=== PATIENT | male | born 1950 | race Caucasian/White ===

== ENCOUNTER → 2019-03-16 08:37 | Outpatient (CLI) | payer MEDICARE, BC, SELFPAY ==
--- NOTE | 2019-03-16 | DI.NM.S_ITS ---
PROCEDURE: NM BONE SCAN WHOLE BODY RADIOPHARMACEUTICAL: 21.2 mCi Tc-99m MDP IV. INDICATIONS: Personal history of malignant neoplasm of prostate TECHNIQUE: Delayed whole-body scintigrams were obtained approximately 3-4 hours after intravenous injection of radiotracer. Anterior and posterior views were acquired from vertex to feet. Additional left and right oblique views of the pelvis were obtained. COMPARISON: None. FINDINGS: There is increased uptake in the right proximal tibial and fibular shafts with deformity, consistent with old fractures. No lesions are identified in skull, sternum, clavicles, scapulae, ribs, bony pelvis, and visualized shafts of the long bones. There is low level increased uptake in cervical, thoracic and lumbar spine with distribution indistinguishable from degenerative disc and facet disease; early metastasis to spine could be obscured by degenerative changes. There are foci of increased periarticular activity involving wrists and hands bilaterally, compatible with degenerative/arthritic changes. There is normal soft tissue uptake. IMPRESSION: 1. No definitive scintigraphic findings to suggest osseous metastasis. 2. Suspect old fracture/deformity of the right tibial and fibular shafts. Dictated by: Noah Cadena M.D. on 03/16/2019 at 14:02 Approved by: Noah Cadena M.D. on 03/16/2019 at 17:24
== END ==
PROVIDERS: PCP Family Medicine; Visit Provider Family Medicine
DX: Z85.46 Personal history of malignant neoplasm of prostate (principal)
CPT/HCPCS: 78306; A9503

== ENCOUNTER 2019-07-26 09:23 | Day surgery (SDC) | payer MEDICARE, BC, SELFPAY ==
[2019-07-22 10:33] VITALS: BMI 30.3
[2019-07-26] VITALS (8 sets, daily range): BP systolic 139–170; BP diastolic 72–93; PULSE 50–61; RESP 10–60; TEMP 36.1–36.7; O2SAT 89–100; BMI 30.4
--- NOTE | 2019-07-26 | DI.RAD.S_ITS ---
PROCEDURE: XR CHEST 1V INDICATIONS: PORT A CATH PLACEMENT TECHNIQUE: One view of the chest was acquired. COMPARISON: None. FINDINGS: Surgical changes and devices: Left chest wall erasmo catheter is present. There is a loop within the left inferior neck which demonstrates a possible kink. Lungs and pleura: Lungs are clear. No pleural effusions or pneumothorax. Mediastinum: Mediastinal contours appear normal. Heart size is normal. Bones and chest wall: No suspicious bony lesions. Overlying soft tissues appear unremarkable. IMPRESSION: Possible kink within the left chest wall erasmo catheter. Oblique films could be performed for further assessment, if clinically indicated. Dictated by: Leeann Barber M.D. on 07/26/2019 at 13:52 Approved by: Leeann Barber M.D. on 07/26/2019 at 13:55
--- NOTE | 2019-07-26 10:40 | PM.HP.1 ---
History of Present Illness History of Present Illness Date Patient Seen: 07/26/19 Time Patient Seen: 10:47 Chief complaint: [id number] Narrative: 68-year-old male with metastatic prostate cancer presents for a Port-A-Cath placement. He has never had an indwelling central catheter. His medical history is significant for hypertension. No previous chest or vascular surgery. Today he is feeling well no pain fevers chills nausea vomiting. Patient History Medical History Arthritis (Acute) Enlarged prostate (Acute) HTN (hypertension) (Acute) Hypothyroidism (Acute) Leg fracture (Acute ~1971) Low back pain (Acute) Prostate cancer (Acute) Surgical History History of colonoscopy (Acute ~2013) Social History household members: spouse Smoking Status: Former smoker Family & Social History Social History: household members spouse Tobacco & Substance use: Tobacco type cigars,smokeless tobacco Smoking Status Former smoker Meds Home Medications and Allergies Home Medications Medication Instructions Recorded Confirmed Type albendazole [Albenza] 400 mg PO DAILY 07/22/19 07/22/19 History dipyridamole 25 mg PO DAILY 07/22/19 07/22/19 History hydrocodone-acetaminophen [[place]] 1 tab PO Q4-6H PRN 07/22/19 07/22/19 History mebendazole 100 mg PO BID 07/22/19 07/22/19 History propranolol 10 mg PO BID 07/22/19 History tamsulosin 0.4 mg PO DAILY 07/22/19 07/26/19 History thyroid (pork) [[place] Thyroid] 60 mg PO BID 07/26/19 07/26/19 History Allergies Allergy/AdvReac Type Severity Reaction Status Date / Time No Known Drug Allergies Allergy Verified 07/22/19 11:00 Review of Systems Review of Systems ROS Unobtainable: All systems reviewed & are unremarkable except as noted in HPI and below Exam Narrative Exam Narrative: General-adult male no acute distress, well nourished HEENT-moist mucous membranes, no scleral icterus Neck-supple with full range of motion, no lymphadenopathy Chest- no labored respirations, clear to auscultation bilaterally Cardiac-regular rate and rhythm Abdomen-soft, nontender, non distended Extremities-no edema, warm well perfused Neurological-alert and oriented x 3. No focal deficits Skin-normal temperature and turgor, no rashes or ulcers Assessment & Plan Assessment & Plan narrative: 68-year-old male with metastatic prostate cancer presents for Port-A-Cath placement. We discussed the risks of the operation including bleeding infection pneumothorax need for further procedure or operation. His questions have been answered and he is in agreement with the plan.
[2019-07-26] MEDS: LACTATED RINGERS 1,000 ML 42 ML IV (10:50)
--- NOTE | 2019-07-26 10:51 | SUR.PREOP ---
Pt. poor historian as far as medication goes..My takes care of all that. Dr. Corona made aware.
--- NOTE | 2019-07-26 11:31 | SUR.OPER ---
Supine on padded OR bed, head on pillow, arm padded and tucked at side, legs uncrossed, safety belt at thigh, tape over blanket over lower legs .
[2019-07-26] MEDS: CEFAZOLIN 2 GM/100 ML FROZ.PIGGY IV (12:15)
[2019-07-26] MEDS: BUPIVACAINE 0.25% (PF) VIAL 30 ML INJ (13:00)
[2019-07-26] MEDS: HEPARIN 5,000 UNIT, SODIUM CHLORIDE 0.9% 50 ML IV (13:01)
--- NOTE | 2019-07-26 13:36 | PM.OP.1 ---
Operative Date/Time/Diagnoses Date of procedure: 07/26/19 Time of procedure: 13:36 Pre-op diagnosis: metastatic prostate cancer Post-op diagnosis: same Procedure & Clinicians Procedure: Port a cath placement Same procedure as scheduled: Yes Indications: 68-year-old male with metastatic prostate cancer presents for Port-A-Cath placement. Surgeon: Marin Carmen Click Yes if Unassisted: Yes Anesthesia Type: General Operative Notes Findings: Tip of the catheter within the SVC Estimated Blood Loss (mL): 5 Blood products transfused: none Procedure in detail: Patient was brought to the operating room placed supine on table. Bilateral lower extremity compressive devices were applied. General anesthesia was induced and he was intubated with an LMA. He was then prepped and draped in usual sterile fashion. Time-out was performed ensure the correct patient procedure necessary equipment within the operating room. He received 2 g of Ancef prior to incision. A left subclavian vein access was attempted but the vessel could not be accessed. Under ultrasound guidance the left internal jugular vein was accessed under direct visualization. The guidewire was then threaded through the needle. Its placement was then confirmed using fluoroscopy. The dilator was then placed over the guidewire. The catheter was then inserted through the sheath. Placement was again confirmed with fluoroscopy. A subcutaneous pocket was made in the left chest wall. The tunneler device was used to move the catheter from the left neck to the left chest pocket. The port was attached after it was primed with heparined saline. The port was tested to ensure that it flushed easily and had good blood return. The port was then secured to the underlying fascia using interupted 0 Prolene suture. Hemostasis was achieved. The wound was irrigated with sterile saline. The subcutaneous tissues were reapproximated with the 3 0 Vicryl and then skin closed with 4-0 Monocryl. The skin was sealed with Dermabond. Patient tolerated procedure well. The sponge and instrument count at the end operation was correct. Patient emerged from general anesthesia was extubated and taken to the postoperative care unit in stable condition Complications: none Post-operative Condition: stable Disposition: same day surgery
== END 2019-07-26 14:37 | disposition home or self-care (01) ==
PROVIDERS: PCP Family Medicine; Visit Provider Surgery
PROC: (CPT 36561; principal; 2019-07-26 11:15)
DX: C61 Malignant neoplasm of prostate (principal); Z45.2 Encounter for adjustment and management of vascular access device
CPT/HCPCS: 36561; 71045; 76000; C1788; J0690; J1100; J1644; J2405; J2704; J3010

== ENCOUNTER → 2019-07-28 09:40 | Oncology outpatient (ONC) | payer MEDICARE, BC, SELFPAY ==
[2019-07-28 10:18] VITALS: BP 134/80; PULSE 61; RESP 18; TEMP 36.2; O2SAT 96
--- NOTE | 2019-07-28 10:27 | ONC.CONS ---
History of Present Illness - Data of Consult Patient: new to practice Consult date: 07/28/19 Requesting Physician: Jarred Sargent MD Primary Care Provider: Jarred Sargent MD - Consult Narrative Reason for consult: Prostate Cancer Narrative: Babatunde March is a 68 year old male. He presented with slow and weak urine stream with elevated serum PSA level as follows: 8.4 on 06/08/2013, 15.8 on 08/14/2014 and 26.4 on 02/02/2015. He underwent TRUS on 01/2015, and was diagnosed with prostate cancer by Kourtney Light MD as GS (5+4) with 8/12 cores involved. He was on testosterone cream at the time but discontinued. According to patient and patient's that he was deemed not a good candidate for surgical resection. Therefore radiation therapy with androgen deprivation therapy Lupron were recommended. Patient said that he walked away because the do not want to get radiation. They would like to pursue integrative alternative medical therapy. He went to [place] and received high dose iv vitamin C and a couple of oral nutritions. PSA went down. The PSA damon was 5 according to patient. In Aug 2016, he moved to [facility] in Aug 2016, and continued to do supplements. In Nov/2018, he noticed pressure in the abdomen with dizziness. He also developed left sided flank pain with fatigue. On 02/18/2019, PSA was 91.5. In Aug 2019, PSA was [address] Sargent's office. He again noticed a little bit slow urine stream. US on 02/23/2019 showed enlarged prostate, left-sided hydronephrosis and pelvic lymphadenopathy. On 03/01/2019, CT of the abdomen and pelvis showed a 1.2 cm necrotic appearing lymph node in the left internal iliac area and a bone scan was negative. On 03/02/2019, CT of the abdomen and pelvis without contrast showed a markedly enlarged prostate gland and bulky pelvic and iliac adenopathy with moderate left hydroureteranephrosis secondary to bulky left iliac adenopathy. A 1 cm hyperdense cortical lesion and the mid pole of the right kidney was also noted. A repeat bone scan on 03/16/2019 showed no evidence of metastasis. He went to [facility] and was seen by Dr. Merlin German. He was informed that he had a hormone naive metastatic prostate cancer. The patient received his first Lupron injection on 03/18/2019. After the injection, patient's symptoms have improved dramatically. Patient's abdominal flank pain also has improved. For the past 2 month, he reported no pain at all. On 05/10/2019, He saw Dr. Schwarz. Chemotherapy was discussed with patient. The patient then decided to seek second opinion and was seen by Dr. Nicholas Echeverria at [facility]. Recommendations include Lupron, Zytiga, or Xtandi or chemotherapy such as docetaxel, I toes antrum, Compazine Taxol, paclitaxel, carboplatin, leucovorin/5 FU,. Radiation therapy or surgery we also discussed with the patient. Immunotherapy with interferon and Leukine were discussed with the patient. CC: Prince Marcelo MD Home Medications and Allergies Home Medications Medication Instructions Recorded Confirmed Type hydrocodone-acetaminophen [[place]] 1 tab PO Q4-6H PRN 07/22/19 07/28/19 History tamsulosin 0.4 mg PO DAILY 07/22/19 07/28/19 History thyroid (pork) [[place] Thyroid] 60 mg PO BID 07/26/19 07/28/19 History Artmisiinin DAILY 07/28/19 History Berberine DAILY 07/28/19 History Cytoquel 07/28/19 History Homeopathic Prostate Drops 07/28/19 History Multi-Day Plus Minerals 1 tab DAILY 07/28/19 07/28/19 History Neprinol 07/28/19 History Quercitin DAILY 07/28/19 History Tm6 DAILY 07/28/19 History Vacustatin DAILY 07/28/19 History ascorbic acid (vitamin C) [Vitamin DAILY 07/28/19 History C] cholecalciferol (vitamin D3) 10,000 unit DAILY 07/28/19 07/28/19 History [Vitamin D3] magnesium 1 DAILY 07/28/19 History [id number]-ymcvjulhzvo cap PO DAILY 07/28/19 History vitamin B64-dsqlw acid tab PO DAILY 07/28/19 History Allergies Allergy/AdvReac Type Severity Reaction Status Date / Time No Known Drug Allergies Allergy Verified 07/22/19 11:00 Medical History - Medical, Surgical, Family History Medical History: Medical History (Last Reviewed 07/26/19 @ 10:48 by Marin Carmen MD) Arthritis Enlarged prostate HTN (hypertension) Hypothyroidism Leg fracture Onset Date: ~1971 Low back pain Prostate cancer Surgical History: Surgical History (Last Reviewed 07/26/19 @ 10:48 by Marin Carmen MD) History of colonoscopy Onset Date: ~2013 - Social History Smoking Status: Former smoker Review of Systems - Patient Self-Reported Symptoms SR Constitution: Weight loss/gain SR ears, nose, mouth, throat issues: Ears ringing SR Endocrine issues: Hot flashes All systems PM: reviewed and no additional remarkable complaints except as stated Exam Vital signs: Vital Signs Temp Pulse Resp BP Pulse Ox 07/28/19 10:18 97.2 F L 61 18 134/80 96 Intake and Output 07/27/19 07/28/19 07/28/19 23:59 07:59 15:59 Other: Weight 109.2 kg Patient Weight 07/28/19 23:59 Weight 109.2 kg Narrative: Gen: WDWN, NAD, pleasant and cooperative accompanied by her HEENT: NCAT, EOMI, PERRLA, anicteric sclera. Neck: Supple, No palpable thyromegaly or lymphadenopathy. Respiratory: CTAB, no wheezes audible. No JVD Cardiovascular: RRR, S1 and S2 normal, no M/G/R. Abdomen: Soft, NTND, BS normal, no palpable organomegaly Extremities: No LE pitting edema. Lymphatic: no palpable lymph nodes in the neck, axillae, or groins. Neurological: AOx3, CN II-XII grossly intact. No focal motor or sensory deficit. Psychiatric: Good judgment and insight; normal affect; normal thought process; cooperative, no depression, no anxiety. Results - Labs No labs for review today. Assessment and Plan (1) Prostate cancer Overview: Prostate Cancer, GS (5+4) diagnosed 01/2015. He refused recommendation of XRT/ADT and seek alternative treatment with high dose iv vitamin C and oral nutritions until early 2018 when he was found to have PSA of 91.5 and bulky pelvic and iliac adenopathy with moderate left hydroureteranephrosis secondary to bulky left iliac adenopathy in addition to enlarged prostate on CT scan. No bone metastasis on bone scan from 03/2019. He was seen by Dr. Merlin German at and was started on Lupron injection on 03/18/2019. Assessment: Patient clinically has had significant improvement after he was started on androgen deprivation therapy with Lupron. The left-sided flank pain has improved. I talked with the patient that his history indicated a hormone sensitive metastatic prostate cancer. I talked with him and his that the backbone of the treatment is androgen deprivation therapy. On top of that, we can add a variety of different options including abiraterone, or Xtandi, etc. In addition chemotherapy with docetaxel has also been proven to prolong patient's life. I recommended a repeat evaluation studies with scans including CT and bone scan. I tried to explain that the chemotherapy has proven to prolong life in patients with high-volume disease that is in patients with visceral metastasis or bone metastasis more than 4 locations. In low volume disease, the benefit has not been improven yet. Other therapies for example abiraterone and enzalutamide has been proven in this situation to be of value. Patient and patient's were not interested in further evaluation and did not agree with the standard of care as put forth in guidelines (NCCN and ASCO). They would like to pursue therapy according to their own thought. They said that the standard of care is biased by the big pharmaceutical companies that are not in the best of patient's interests. They are not interested in using abiraterone or Xtandi. They would like to use lower doses of docetaxel followed by low carboplatin. I explained to them that regimen has not been proven to help people with prostate cancer, and I do not think it is the correct thing to do. Patient agrees with continued androgen deprivation therapy. Plan: Patient and patient's will discuss further at home about what they are going to do next. I have tentatively scheduled follow-up appointment in about a month with me for further discussion.
--- NOTE | 2019-07-28 13:20 | ONC.MSW ---
Description: New Pt Intro Activity: Met with pt/ to introduce myself as the DEPORTATION OFFICER/KADY, offer services card, and establish initial rapport. 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 Pt was recently diagnosed with metastatic colon cancer, and is working with Dr. Echeverria through an integrative oncology clinic in [place]. Pt would like to have his chemo here locally, and for Dr. Marcelo to coordinate with his other providers. He's also had multiple treatments of vitamin C infusions over a five month course down in [place], after which his prostate cancer became metastatic. Discussed resources available such as lodging, taxi service from the [employer], and the availability of the [facility] Medical Relief Fund to assist with travel and out of pocket medical costs. Provided pt a medical priority boarding pass for 90-days, as he will soon begin active treatment. No further needs indicated at this time.
== END ==
LOC: ONC 09:41
PROVIDERS: PCP Family Medicine; Visit Provider Internal Medicine Hematology & Oncology
DX: C61 Malignant neoplasm of prostate (principal); I10 Essential (primary) hypertension; E03.9 Hypothyroidism, unspecified; Z87.891 Personal history of nicotine dependence
CPT/HCPCS: 99205; 99215

== ENCOUNTER 2019-08-23 12:53 | Day surgery (SDC) | payer MEDICARE, BC, SELFPAY ==
[2019-08-19 07:57] VITALS: BMI 30.3
[2019-08-23] VITALS (8 sets, daily range): BP systolic 128–161; BP diastolic 74–82; PULSE 51–60; RESP 9–16; TEMP 35.9–36.9; O2SAT 95–99; BMI 30.3
--- NOTE | 2019-08-23 | DI.RAD.S_ITS ---
PROCEDURE: XR CHEST 1V INDICATIONS: PORT A CATH PLACEMENT TECHNIQUE: One view of the chest was acquired. COMPARISON: [facility], CR, XR CHEST 1V, 07/26/2019, 13:37. FINDINGS: Surgical changes and devices: Right chest wall Port-A-Cath tip is in SVC. Lungs and pleura: Lungs are clear. No pleural effusions or pneumothorax. Mediastinum: Mediastinal contours appear normal. Heart size is enlarged. Bones and chest wall: No suspicious bony lesions. Overlying soft tissues appear unremarkable. IMPRESSION: Right chest wall Port-A-Cath tip is in SVC. No focal infiltrate or pneumothorax. Dictated by: Aren Wang M.D. on 08/23/2019 at 15:53 Approved by: Aren Wang M.D. on 08/23/2019 at 15:54
--- NOTE | 2019-08-23 13:15 | PM.PREOP ---
Pre-operative Note Interval Note History & Physical reviewed/Exam performed by Physician: Yes Changes to H&P: No
[2019-08-23] MEDS: LACTATED RINGERS 1,000 ML 100 ML IV (13:31)
[2019-08-23] MEDS: CEFAZOLIN 2 GM/100 ML FROZ.PIGGY IV (13:44)
--- NOTE | 2019-08-23 14:02 | SUR.OPER ---
Supine on padded OR bed, head on pillow, arm padded and tucked at side, legs uncrossed, safety belt at thigh, tape over blanket over lower legs .
[2019-08-23] MEDS: HEPARIN 5,000 UNIT, SODIUM CHLORIDE 0.9% 50 ML IV (14:21)
[2019-08-23] MEDS: BUPIVACAINE 0.25% (PF) VIAL 30 ML INJ (14:22)
[2019-08-23] MEDS: fentaNYL 100 MCG/2 ML INJ 50 MCG IV (15:02)
[2019-08-23] MEDS: OXYCODONE/ACETAMINOPHEN 5/325 TABLET 1 TAB PO (15:23)
--- NOTE | 2019-08-23 15:26 | SUR.PHASEI ---
Patient A/O. Christiana's x 4. Gave pain medication for c/o 03/25 pain. OK to transition to phase 11.
--- NOTE | 2019-08-23 15:58 | SUR.PHASEII ---
brought in. d/c instructions discussed, all voiced an understanding. awiting Dr. Nella ivan speak with them.
--- NOTE | 2019-08-23 16:52 | SUR.PHASEII ---
Late entry: Dr durham spoke with both pt and , pt then dressed with assist of , dressings remained c/d/i. pt left when ready and left in stable condition.
--- NOTE | 2019-08-23 18:25 | PM.OP.1 ---
Operative Date/Time/Diagnoses Date of procedure: 08/23/19 Time of procedure: 18:25 Pre-op diagnosis: Prostate cancer Post-op diagnosis: same Procedure & Clinicians Procedure: Removal of nonfunctioning left Port-A-Cath Insertion right internal jugular Port-A-Cath Same procedure as scheduled: Yes Indications: 68-year-old male with metastatic prostate cancer with planned undergo chemotherapy. He had a port placement approximately a month ago that was initially working but then became dysfunctional secondary due to a kinking of the catheter. He presents today for removal of the dysfunctional catheter and a new right-sided Port-A-Cath. Surgeon: Marin Carmen Click Yes if Unassisted: Yes Anesthesia Type: General Operative Notes Findings: The tip of the Port-A-Cath is in the SVC. No pneumothorax Specimen(s): other Prosthetic devices, grafts, tissues, transplants, or devices: Port-A-Cath Estimated Blood Loss (mL): 5 Procedure in detail: Patient was brought to the operating room placed supine on table. Bilateral lower extremity compressive devices were applied. General anesthesia was induced and he was intubated with an LMA. He was then prepped and draped in usual sterile fashion. Time-out was performed ensure the correct patient procedure necessary equipment within the operating room. He received 2 g of Ancef prior to incision. The left port a cath was removed by incision through the previous incision. A figure of 8 vicryl suture was placed around the entry site of the catheter and closed as it was removed. The pocket was irrigated and hemostasis acheived. The pocket was closed with Nylon interupted sutures. Under ultrasound guidance the right internal jugular vein was accessed under direct visualization. The guidewire was then threaded through the needle. Its placement was then confirmed using fluoroscopy. The dilator was then placed over the guidewire. The catheter was then inserted through the sheath. Placement was again confirmed with fluoroscopy. A subcutaneous pocket was made in the left chest wall. The tunneler device was used to move the catheter from the left neck to the left chest pocket. The port was attached after it was primed with heparined saline. The port was tested to ensure that it flushed easily and had good blood return. The port was then secured to the underlying fascia using interupted 0 Prolene suture. Hemostasis was achieved. The wound was irrigated with sterile saline. The subcutaneous tissues were reapproximated with the 3 0 Vicryl and then skin closed with 4-0 Monocryl. The skin was sealed with Dermabond. Patient tolerated procedure well. The sponge and instrument count at the end operation was correct. Patient emerged from general anesthesia was extubated and taken to the postoperative care unit in stable condition Complications: none Post-operative Condition: stable Disposition: PACU
== END 2019-08-23 16:20 | disposition home or self-care (01) ==
PROVIDERS: PCP Family Medicine; Visit Provider Surgery
PROC: (CPT 36561; principal; 2019-08-23 13:45)
DX: C61 Malignant neoplasm of prostate (principal); Z45.2 Encounter for adjustment and management of vascular access device
CPT/HCPCS: 36561; 36590; 71045; C1788; J0690; J1100; J1644; J2250; J2405; J2704; J3010

== ENCOUNTER → 2020-04-12 14:08 | Outpatient (CLI) | payer MEDICARE, BC, SELFPAY ==
--- NOTE | 2020-04-12 | DI.CT.S_ITS ---
PROCEDURE: CT CHEST ABD PEL WO CON INDICATIONS: Malignant neoplasm of prostate TECHNIQUE: After the administration of oral contrast, 5 mm thick sections acquired from the lung apices to the symphysis pubis. 5 mm thick coronal and sagittal reformats acquired, with additional 7 mm coronal MIP reformats through the lungs. For radiation dose reduction, the following was used: automated exposure control, adjustment of mA and/or kV according to patient size. COMPARISON: [place], [place], ID BONE SCAN WHOLE BODY, 03/16/2019, 13:07. FINDINGS: Image quality: Somewhat limited by the absence of both oral and intravenous contrast. CHEST: Lungs and pleura: No acute pulmonary opacities. No pleural effusions or pneumothorax. Central and peripheral airways are patent are normal in caliber. Mediastinum: Heart size is normal. No pericardial effusion. No mediastinal adenopathy by CT size criteria. Thoracic aorta and central pulmonary arteries are normal in size. Esophagus is normal in caliber. No hiatal hernia. Chest wall: No axillary or supraclavicular adenopathy by size criteria. Thyroid gland appears normal where well seen. A Port-A-Cath extends from right sided approach into the distal SVC. ABDOMEN: Solid organs: Liver is normal in size. Gallbladder is partially contracted. Pancreas is normal in contours. Spleen is normal in size. No adrenal nodules. Both kidneys are normal in size, without nephrolithiasis, but there is moderate hydronephrosis bilaterally extending symmetrically inferiorly towards the bladder within the retroperitoneum. The ureters are dilated and a specific site of ureteral calculus is not seen. Rather, the dilated ureters extend to an area of confluence of the seminal vesicles, prostate, and colonic structures which are difficult to separate morphologically due to absence of both oral and intravenous contrast and apposition of the soft tissues in this area. It is possible that there is an invasive mass extending cephalad with lobulated impingement on the distal ureters bilaterally.. Peritoneum and bowel: Small and large bowel loops are normal in caliber and wall thickness. No free fluid or air. Nodes and vessels: No retroperitoneal or mesenteric adenopathy by size criteria. Aorta and inferior vena cava are normal in size. Miscellaneous: No ventral hernias. PELVIS: Genitourinary: Bladder wall thickness is normal. Miscellaneous: No inguinal hernias or adenopathy. Lobulated soft tissue prominence noted contiguous with the end above the area of the seminal vesicles and posterior wall of the bladder. Distal ureters are dilated but then become confluent with the soft tissue prominence at the midline of the low pelvis. Bones: No suspicious bony lesions. No vertebral body compression fractures. IMPRESSION: No pulmonary metastatic disease is seen. No osseous metastatic disease is found. Lobulated soft tissue prominence is noted at the posterior superior bladder margin in the expected area of the seminal vesicles, where hydronephrosis and hydroureter terminates without identifiable ureteral stones. Tumor infiltration into this area is suspected but the absence of both oral and intravenous contrast reduces quality of visualization to the degree that the exact etiology for these findings is not established. Contrast enhanced MR scanning appears warranted. Given the current findings of bilateral hydronephrosis and hydroureter without nephrolithiasis and suspicion for tumor impingement on the distal urinary tract outflow urology consultation appears warranted at this time or in the near term. Dictated by: Vitaliy Ponce M.D. on 04/12/2020 at 15:59 Approved by: Vitaliy Ponce M.D. on 04/12/2020 at 16:07
== END ==
PROVIDERS: PCP Family Medicine; Referring Provider Family Medicine; Visit Provider Internal Medicine Hematology & Oncology
DX: C61 Malignant neoplasm of prostate (principal); N13.30 Unspecified hydronephrosis
CPT/HCPCS: 71250; 74176

== ENCOUNTER 2020-04-13 18:03 | Emergency (ER) | payer MEDICARE, BC, SELFPAY ==
[2020-04-13] VITALS (8 sets, daily range): BP systolic 171–202; BP diastolic 86–97; PULSE 51–64; RESP 12–22; TEMP 36.2–36.8; O2SAT 98–100; BMI 29.7
--- NOTE | 2020-04-13 18:30 | ED_ITS ---
HPI - Abdominal Pain General Chief Complaint: Abdominal Pain Stated Complaint: PAIN LEFT LOWER SIDE PAIN Time Seen by Provider: 04/13/20 18:30 Source: patient Mode of arrival: Ambulatory Limitations: no limitations History of Present Illness HPI narrative: The patient was initially diagnosed with prostate cancer when living in [place] several years ago. He moved to this area approximately 4 years ago. Initially the cancer was under good control, but his describes the cancer is returning with a vengeance 1+ years ago. He is under oncology care, receiving chemotherapy. Although he has been is area for 4 years, he does not have a urologist. He was post have a take an appointment in about 1 week. He also has hypertension, his blood pressure has been under control over the last several years, until recently. He presents now with headache, no associated chest pain or dyspnea. Has no confusion or visual changes. He has lower abdominal pain he has no associated nausea vomiting. He has no pain to the scrotum. He denies dysuria hematuria. He says his urine output has decreased. He is having regular urine output, but at a much slower rate and LEs less or mouth. Labs are drawn 3 days ago, I do not his baseline, but he reports his creatinine has increased to 2.75. Those labs are available. He also had a noncontrast CT at this hospital yesterday. There is a mass associated with the bladder appeared to cause obstruction of both ureters. He has hydronephrosis, down to the level of bladder and the cine of the mass. A postvoid residual was done, he had no difficulty urinating and had only 75 mL of urine in the bladder after urinating. He has no URI symptoms, no sore throat, no cough or dyspnea. He is having no fever or chills. He has been compliant with blood pressure medications, he has no cardiovascular disease. Related Data Home Medications Medication Instructions Recorded Confirmed hydrocodone-acetaminophen [[place]] 1 tab PO Q4-6H PRN 07/22/19 08/19/19 tamsulosin 0.4 mg PO DAILY 07/22/19 08/19/19 thyroid (pork) [Howe Thyroid] 60 mg PO BID 07/26/19 08/19/19 Artmisiinin DAILY 07/28/19 08/01/19 Berberine DAILY 07/28/19 08/01/19 Cytoquel 07/28/19 08/01/19 Homeopathic Prostate Drops 07/28/19 08/01/19 Multi-Day Plus Minerals 1 tab PO DAILY 07/28/19 08/19/19 Neprinol 07/28/19 08/01/19 Quercitin DAILY 07/28/19 08/01/19 Tm6 DAILY 07/28/19 08/01/19 Vacustatin DAILY 07/28/19 08/01/19 ascorbic acid (vitamin C) [Vitamin DAILY 07/28/19 08/01/19 C] cholecalciferol (vitamin D3) 10,000 unit DAILY 07/28/19 08/19/19 [Vitamin D3] magnesium 250 mg PO DAILY 07/28/19 08/19/19 [id number] 1 cap PO DAILY 07/28/19 08/19/19 vitamin [id number] acid tab PO DAILY 07/28/19 08/01/19 Previous Rx's Medication Instructions Recorded acetaminophen [Tylenol] 650 mg PO QID PRN #60 cap 08/23/19 Allergies Allergy/AdvReac Type Severity Reaction Status Date / Time No Known Drug Allergies Allergy Verified 08/23/19 13:35 Review of Systems Review of Systems ROS Unobtainable: All systems reviewed & are unremarkable except as noted in HPI and below Constitutional Constitutional: Denies anorexia, Denies body ache(s), Denies chills, Denies fever(s), Reports headache(s), Denies lethargy and Denies weakness Eyes Eyes: Denies change in vision ENT Ears, Nose, Mouth, and Throat: Denies dizziness, Reports headache(s), Denies nasal congestion, Denies nasal discharge and Denies neck pain Cardiovascular Cardiovascular: Denies chest pain, Denies lightheadedness, Denies palpitations, Denies dyspnea and Denies orthopnea Respiratory Respiratory: Denies cough, Denies dyspnea and Denies wheezing Gastrointestinal Gastrointestinal: Denies abdominal pain, Denies change in bowel habits, Denies nausea and Denies vomiting Musculoskeletal Musculoskeletal: Denies back pain and Denies neck pain Integumentary/Breasts Skin/Breast: Denies pruritus, Denies erythema, Denies rash and Denies wounds Neurologic Neurologic: Denies dizziness, Reports headache(s) and Denies weakness Endocrine Endocrine: Denies palpitations Allergic/Immunologic Allergic/Immunologic: Denies wheezing Patient History Medical History Arthritis (Acute) Enlarged prostate (Acute) HTN (hypertension) (Acute) Hypothyroidism (Acute) Leg fracture (Acute ~1971) Low back pain (Acute) Prostate cancer (Acute) Surgical History History of colonoscopy (Acute ~2013) Social History household members: spouse Smoking Status: Former smoker Smoking Status: Former smoker Substance Use Type: does not use Exam Initial Vital Signs Initial Vital Signs: Vital Signs Temperature 97.2 F L 04/13/20 18:08 Pulse Rate 56 L 04/13/20 18:08 Respiratory Rate 18 04/13/20 18:08 Blood Pressure 200/86 H 04/13/20 18:08 Pulse Oximetry 100 04/13/20 18:08 Const General: cooperative and well developed Nutritional Appearance: well nourished HENMT Mouth: oral mucosae normal Throat: posterior oropharynx normal Eyes Conjunctivae: conjunctivae normal Sclera: sclerae normal Neck Neck: No JVD Resp Effort & Inspection: normal respiratory effort and able to speak in complete sentences Auscultation: clear to auscultation bilaterally, no rales, no rhonchi and no wheezes Cardio Rate: regular rate Rhythm: regular rhythm Heart Sounds: no click, no gallops, no murmurs and no rubs Pulses: normal peripheral pulses GI Inspection: non-distended Palpation: soft, no hepatosplenomegaly, No guarding, No pulsatile mass and No tender Auscultation: normal bowel sounds Back/Spine/Pelvis Back: No CVA tenderness Skin General: no rashes or lesions noted, No jaundice and No petechiae Neuro General: alert, oriented x3, gait normal and no focal motor deficits Speech: speech normal Extrem General: full ROM, no clubbing, cyanosis or edema, no pedal edema and no calf tenderness Psych Appearance: well kempt Mental Status: mental status grossly normal Attitude: cooperative Thought Content: normal and suicidality Judgment: judgment good Course Course Course Narrative: The patient's lab work was repeated. His creatinine has increased to 3.4. He has obstructive uropathy is associated with the cancer. I discussed the case with Dr. Nevarez, urology at the [facility]. He will go to [facility] by private vehicle, and denice ck an tonight. Dr. smith on suggest he will require bilateral percutaneous nephrostomy tubes. In the interim his blood pressure increased to 160s to 180 then greater than 200. I gave him a drowsy, his blood pressures back in the 150s and he is feeling much better. The CT him initially was forwarded to the [facility]. Arrange for made with transfer nurse to see the patient in the ER. Orders Ordered: ED Orders 04/13/20 18:28 Complete Blood Count AUTO DIFF Stat Comprehensive Metabolic Panel Stat Lipase Stat Partial Thromboplastin Time Stat Prothrombin Time INR Stat 04/13/20 18:33 EKG-12 Lead Stat Discontinued Medications Amoxicillin/Clavulanate Potassium (Augmentin 875-125 Mg) 1 tab PO NOW ONE Stop: 04/13/20 21:54 Gentamicin Sulfate (Garamycin 0.3% Ophth Prepack) 1 bottle MISC [id number] RICH Stop: 04/19/20 08:00 Hydralazine HCl (Apresoline) 20 mg IV NOW ONE Stop: 04/13/20 20:49 Last Admin: 04/13/20 20:58 Dose: 20 mg Documented by: GUERA Hydromorphone HCl (Dilaudid) 1 mg IV NOW ONE Stop: 04/13/20 20:18 Last Admin: 04/13/20 20:25 Dose: 1 mg Documented by: GUERA Prednisone (Deltasone) 60 mg PO NOW ONE Stop: 04/13/20 21:54 Vital Signs Vital signs: Vital Signs - 8 hr 04/13/20 18:08 04/13/20 19:00 04/13/20 20:00 Temperature 97.2 F L Pulse Rate 56 L 62 58 L Respiratory Rate 18 16 15 Blood Pressure 200/86 H Blood Pressure [Left Arm] 194/97 H 190/91 H Pulse Oximetry 100 100 99 04/13/20 20:45 04/13/20 20:52 04/13/20 20:58 Temperature 98.3 F Pulse Rate 51 L 58 L Respiratory Rate 12 Blood Pressure 188/95 H Blood Pressure [Left Arm] 202/91 H 188/95 H Pulse Oximetry 98 04/13/20 21:05 04/13/20 21:25 Temperature Pulse Rate 59 L 64 Respiratory Rate 14 22 Blood Pressure Blood Pressure [Left Arm] 182/89 H 171/89 H Pulse Oximetry 99 99 MDM - Abdominal Pain Lab Data Result diagrams: 04/13/20 18:28 04/13/20 18:28 Labs: Lab Results 04/13/20 04/13/20 04/13/20 Range/Units 18:28 18:28 18:28 WBC 7.5 (4.5-11.0) X10^3/uL RBC 3.64 L (4.5-5.9) X10^6/uL Hgb 11.2 L (13.5-17.5) g/dL Hct 32.1 L (41-53) % MCV 88.1 (80-100) fL MCH 30.7 (26-34) PG MCHC 34.8 (30-36) % RDW 14.9 H (11.6-14.8) % Plt Count 252 (150-400) X10^3/uL Neut % (Auto) 58.3 (50-75) % Lymph % (Auto) 32.1 (25-40) % Newton % (Auto) 7.7 (3-14) % Eos % (Auto) 0.8 L (2-4) % Baso % (Auto) 1.1 (0-2) % Neut # (Auto) 4400 (6461-1530) /uL Lymph # (Auto) 2400 (9823-5779) /uL Newton # (Auto) 600 (0-900) /uL Eos # (Auto) 100 (0-450) /uL Baso # (Auto) 100 (0-100) /uL PT 11.2 (10.1-12.7) SECONDS INR 1.0 (0.9-1.3) APTT 36 (26.4-36.2) SECONDS Sodium 140 (137-145) mmol/L Potassium 4.6 (3.4-5.1) mmol/L Chloride 106 (98-107) mmol/L Carbon Dioxide 26 (22-32) mmol/L BUN 37 H (9-20) mg/dL Creatinine 3.44 H (0.66-1.25) mg/dL Estimated GFR 17.9 L (>60) mL/min BUN/Creatinine Ratio 10.8 (6-22) Glucose 127 H (80-110) mg/dL Calcium 9.5 (8.4-10.2) mg/dL Total Bilirubin 0.3 (0.2-1.3) mg/dL AST 27 (17-59) IU/L ALT 15 (<50) IU/L Alkaline Phosphatase 76 (38-126) U/L Total Protein 7.2 (6.3-8.2) g/dL Albumin 4.2 (3.5-5.0) g/dL Globulin 3.0 (1.7-4.1) g/dL Albumin/Globulin Ratio 1.4 (1.0-2.8) Lipase 237 (23-300) U/L Imaging Data CT scan - abdomen/pelvis: Radiologist's Impression: Discharge Plan Departure Patient Disposition: [facility] Clinical Impression: Acute bilateral obstructive uropathy, Metastatic malignant neoplasm to prostate Hypertension Qualifiers: Hypertension type: essential hypertension Qualified Code(s): I10 - Essential (primary) hypertension Activity Restrictions/Additional Instructions: I discussed her case with Dr. Nevarez, urology at the [facility] in [place]. Go from here to the ER at the [facility], Urology will assume her care there. Do not drink or eat prior to arrival there. Prescriptions: No Action Artmisiinin DAILY RF: 0 ascorbic acid (vitamin C) [Vitamin C] 500 mg Tablet DAILY RF: 0 magnesium 250 mg Tablet 250 mg PO DAILY RF: 0 cholecalciferol (vitamin D3) [Vitamin D3] 5,000 unit Tablet 10,000 unit DAILY RF: 0 vitamin A22-lfwut acid 500-400 mcg Tablet PO DAILY RF: 0 [id number] 200-5-0.8-400 mg Capsule 1 cap PO DAILY RF: 0 Berberine DAILY RF: 0 Cytoquel RF: 0 Homeopathic Prostate Drops RF: 0 Multi-Day Plus Minerals 1 tab PO DAILY RF: 0 Neprinol RF: 0 Quercitin DAILY RF: 0 Tm6 DAILY RF: 0 Vacustatin DAILY RF: 0 hydrocodone-acetaminophen [[place]] 5-325 mg Tablet 1 tab PO Q4-6H PRN (Reason: Pain) RF: 0 tamsulosin 0.4 mg Capsule 0.4 mg PO DAILY RF: 0 thyroid (pork) [Howe Thyroid] 60 mg Tablet 60 mg PO BID RF: 0 acetaminophen [Tylenol] 325 mg capsule 650 mg PO QID PRN (Reason: pain) Qty: 60 RF: 0 Referrals: Jarred Sargent MD [Primary Care Provider] -
[2020-04-13 18:38] LABS: Add Manual Diff / Slide Review NO; Basophils Absolute Auto 100 /uL (0-100); Basophils Percent Auto 1.1 % (0-2); Eosinophils Absolute Auto 100 /uL (0-450); Eosinophils Percent Auto 0.8 % (2-4); Hematocrit 32.1 % (41-53); Hemoglobin 11.2 g/dL (13.5-17.5); Lymphocytes Absolute Auto 2400 /uL (1100-4500); Lymphocytes Percent Auto 32.1 % (25-40); Mean Corpuscular HGB Conc 34.8 % (30-36); Mean Corpuscular Hemoglobin 30.7 PG (26-34); Mean Corpuscular Volume 88.1 fL (80-100); Monocytes Absolute Auto 600 /uL (0-900); Monocytes Percent Auto 7.7 % (3-14); Neutrophils Absolute Auto 4400 /uL (1500-7000); Neutrophils Percent Auto 58.3 % (50-75); Platelet Count 252 X10^3/uL (150-400); Red Blood Cell Count 3.64 X10^6/uL (4.5-5.9); Red Cell Distribution Width 14.9 % (11.6-14.8); White Blood Cell Count 7.5 X10^3/uL (4.5-11.0)
[2020-04-13 18:43] LABS: Prothrombin Time 11.2 SECONDS (10.1-12.7)
[2020-04-13 18:46] LABS: PTT Partial Thromboplastin Tim 36 SECONDS (26.4-36.2)
[2020-04-13 18:47] LABS: Alanine Aminotransferase 15 IU/L (<50); Albumin 4.2 g/dL (3.5-5.0); Albumin Globulin Ratio 1.4 (1.0-2.8); Alkaline Phosphatase 76 U/L (38-126); Aspartate Aminotransferase 27 IU/L (17-59); BUN Creatinine Ratio 10.8 (6-22); Bilirubin Total 0.3 mg/dL (0.2-1.3); Blood Urea Nitrogen 37 mg/dL (9-20); Calcium 9.5 mg/dL (8.4-10.2); Carbon Dioxide 26 mmol/L (22-32); Chloride 106 mmol/L (98-107); Estimated Glomerular Filt Rate 17.9 mL/min (>60); Glucose 127 mg/dL (80-110); HEMOLYSIS < 15 (0-50); Lipase 237 U/L (23-300); Potassium 4.6 mmol/L (3.4-5.1); Sodium 140 mmol/L (137-145); Total Protein 7.2 g/dL (6.3-8.2)
--- NOTE | 2020-04-13 19:44 | PC.NURSE ---
provider in contact with urology, patient informed by provider the potential for transfer to medicine.
[2020-04-13] MEDS: HYDROMORPHONE 1 MG INJ IV (20:25)
[2020-04-13] MEDS: HYDRALAZINE 20 MG/ML VIAL IV (20:58)
--- NOTE | 2020-04-13 22:19 | PC.NURSE ---
patient taken POV to [facility] by . IV left in place per [facility].
== END 2020-04-13 22:15 | disposition short-term general hospital (02) ==
PROVIDERS: Emergency Provider Emergency Medicine; PCP Family Medicine
DX: N13.9 Obstructive and reflux uropathy, unspecified (principal); C61 Malignant neoplasm of prostate; I10 Essential (primary) hypertension; R51 Headache; R00.1 Bradycardia, unspecified
CPT/HCPCS: 36415; 51798; 80053; 83690; 85025; 85610; 85730; 93005; 93010; 96374; 96375; 99285; J0360; J1170